=== PATIENT | female | born 1950 | race American Indian/Alaskan Native ===

== ENCOUNTER 2018-06-06 16:58 | Inpatient (IN) | payer MEDICARE ==
[2018-06-06] MEDS ORDERED: NACL 0.9% 1000 ML 1,000 ML IV ONE ×2 (17:12→19:31)
--- NOTE | 2018-06-06 17:23 | Emergency Department Report ---
HPI - General Chief Complaint: Vaginal Bleeding Time Seen by Provider: 06/06/18 17:07 - HPI HPI: Room 22 The patient is a 67-year-old female presenting with a chief complaint of vaginal bleeding. The patient was sent from [facility] for increased vaginal bleeding. Staff states the patient had light vaginal bleeding a day today she soaked through an entire brief. Patient is nonverbal at baseline and does not provide a history. Location: Genitourinary Duration: 2 days Quality: [See above] Severity: [See above] Modifying factors: [see above] Context: [see above] Mode of transportation: [not driving] ED Past Medical Hx - Past Medical History Hx Hypertension: Yes Hx CVA: Yes Hx Diabetes: Yes Hx GERD: Yes Hx Seizures: Yes Additional medical history: Resp failure, Trach - Surgical History Additional Surgical History: TRach, PEG tube - Family History Family history: no significant - Social History Smoking Status: Unknown if ever smoked Substance Use Type: None - Medications Home Medications: Home Medications Medication Instructions Recorded Confirmed Last Taken Type Detemir (Nf) [Levemir (Nf)] 100 units SQ DAILY 01/11/18 06/06/18 Unknown History Famotidine [Pepcid] 20 mg NGTUBE BID 01/11/18 06/06/18 Unknown History amLODIPine [Norvasc] 10 mg NGTUBE DAILY 01/11/18 06/06/18 Unknown History levETIRAcetam [Levetiracetam] 100 mg NGTUBE Q12HR 01/11/18 06/06/18 Unknown History Metoprolol 25 mg NGTUBE BID 06/06/18 06/06/18 Unknown History ED Review of Systems ROS: Stated complaint: VAGINAL BLEEDING Other details as noted in HPI Comment: Unobtainable due to pts medical conditions Physical Exam - Physical Exam Vital Signs: Vital Signs 06/06/18 17:09 Temperature 99.7 F H Pulse Rate 157 H Respiratory 26 H Rate Blood Pressure 174/99 O2 Sat by Pulse 100 Oximetry Physical Exam: GENERAL: The patient is well-developed well-nourished female lying on stretcher with trach in place nonverbal. [] HEENT: Normocephalic. Atraumatic. Patient has moist mucous membranes. NECK: Supple. Trachea midline CHEST/LUNGS: Clear to auscultation. There is no respiratory distress noted. HEART/CARDIOVASCULAR: Regular. There is tachycardia. There is no gallop rub or murmur. ABDOMEN: Abdomen is soft, nontender. Patient has normal bowel sounds. There is no abdominal distention. SKIN: There is no rash. There is no edema. There is no diaphoresis. NEURO: The patient is nonverbal and unresponsive at baseline MUSCULOSKELETAL: There is no evidence of acute injury. ED Course Vital Signs 06/06/18 17:09 Temperature 99.7 F H Pulse Rate 157 H Respiratory 26 H Rate Blood Pressure 174/99 O2 Sat by Pulse 100 Oximetry - Consultations Consultation #1: 06/06/18 17:17 Information obtained from the patient's nurse at [facility] ED Medical Decision Making - Lab Data Result diagrams: 06/06/18 17:10 06/06/18 17:45 - EKG Data -: EKG Interpreted by Me - EKG Data When compared to previous EKG there are: previous EKG unavailable Interpretation: other (EKG reveals SVT at 161 bpm) - Radiology Data Radiology results: pending (pelvic ultrasound) Critical care attestation.: If time is entered above; I have spent that time in minutes in the direct care of this critically ill patient, excluding procedure time. ED Disposition Clinical Impression: SVT (supraventricular tachycardia), Lactic acidosis Disposition: -09 OP ADMIT IP TO THIS HOSP Is pt being admited?: Yes Does the pt Need Aspirin: No Condition: Fair Time of Disposition: 20:04 (hospitalist paged (Dr Bowden))
[2018-06-06 17:26] LABS: Hematocrit 37.2 % (30.3-42.9); Hemoglobin 11.8 gm/dl (10.1-14.3); Mean Corpuscular HGB Conc 32 % (30-34); Mean Corpuscular Volume 71 fl (79-97); Platelet Count 470 K/mm3 (140-440); Red Blood Count 5.22 M/mm3 (3.65-5.03)
[2018-06-06 18:05] LABS: Red Cell Distribution Width 20.6 % (13.2-15.2)
[2018-06-06 18:16] LABS: Anisocytosis 1+; Eosinophils % (Manual) 0 % (0.0-4.3); Ovalocytes 1+; Poikilocytosis 1+; Total Cells Counted 100
[2018-06-06 18:17] LABS: Hypochromasia 1+; Platelet Estimate Consistent w Auto; Target Cells Few
[2018-06-06 18:26] LABS: Alanine Aminotransferase 16 units/L (7-56); Albumin 3.3 g/dL (3.9-5); BUN/Creatinine Ratio 27; Blood Urea Nitrogen 8 mg/dL (7-17); Calcium 9.3 mg/dL (8.4-10.2); Hemolysis Index 0
--- NOTE | 2018-06-06 18:26 | XRay Report ---
PROCEDURE: XR CHEST 1V AP TECHNIQUE: Chest radiograph , single frontal view. HISTORY: tachycardia COMPARISONS: CXR 01/11/2018 . FINDINGS: Heart: Normal. Mediastinum/Vessels: Normal. Lungs/Pleural space: Consolidation in the left base medially with air bronchograms. Findings suggest infiltrate, again noted. Bony thorax: No acute osseous abnormality. Life support devices: Tracheostomy tube is noted.. IMPRESSION: Infiltrate with air bronchograms in the medial left lung base suspicious for pneumonia. This document is electronically signed by Verna Kenney MD., June 06 2018 06:24:10 PM ET
[2018-06-06 18:32] LABS: Free T4 (Free Thyroxine) 1.34 ng/dL (0.76-1.46)
[2018-06-06 19:14] LABS: Bilirubin,Urine NEG (Negative); Blood,Urine NEG (Negative); Color,Urine Yellow (Yellow); Protein,Urine <15 mg/dL mg/dL (Negative); Urobilinogen,Urine < 2.0 mg/dL (<2.0)
[2018-06-06] MEDS ORDERED: LOPRESSOR IV ONE (19:31)
--- NOTE | 2018-06-06 20:31 | Ultrasound Report ---
US PELVIC COMPLETE CLINICAL INDICATION: Female, 67 years of age. vaginal bleeding COMPARISON: None. TECHNIQUE: Several real-time grayscale and color Doppler images were obtained. Permanent images were secured for documentation. Transabdominal exam. Patient declined transvaginal exam. FINDINGS: Uterus and ovaries are not visualized and may be surgically absent. Visualized urinary blad dharmesh is unremarkable. No abnormal soft tissue mass or fluid collection demonstrated within the pelvic cavity. IMPRESSION: 1. Uterus and ovaries are not visualized and may be surgically absent. 2. No abnormal soft tissue mass or fluid collection demonstrated within the pelvic cavity. This document is electronically signed by Devan Hurley DO., June 06 2018 08:29:42 PM ET
--- NOTE | 2018-06-06 23:00 | History and Physical Report ---
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 In the emergency room the blood was noted to be in her stool. Review of systems unobtainable PAST MEDICAL HISTORY: Chronic respiratory failure, CVA with a face care, hypertension, diabetes, GERD, seizure PAST SURGICAL HISTORY: Unknown SOCIAL HISTORY: Unknown FAMILY HISTORY: Unknown Medications and Allergies Allergies Allergy/AdvReac Type Severity Reaction Status Date / Time hydrocodone AdvReac Unknown Verified 01/11/18 10:15 Home Medications Medication Instructions Recorded Confirmed Last Taken Type Detemir (Nf) [Levemir (Nf)] 100 units SQ DAILY 01/11/18 06/06/18 Unknown History Famotidine [Pepcid] 20 mg NGTUBE BID 01/11/18 06/06/18 Unknown History amLODIPine [Norvasc] 10 mg NGTUBE DAILY 01/11/18 06/06/18 Unknown History levETIRAcetam [Levetiracetam] 100 mg NGTUBE Q12HR 01/11/18 06/06/18 Unknown History Metoprolol 25 mg NGTUBE BID 06/06/18 06/06/18 Unknown History Exam - Physical Exam Narrative exam: Gen. appearance: Patient lying in bed, no apparent distress, trach HEENT: Normocephalic, atraumatic, pupils equally round and reactive to light, extraocular movement intact, and no sclericterus,. No JVD or thyromegaly or nodule,neck supple, no carotid bruit ,mucous membranes moist, no exudate or erythema Heart: S1, S2, regular rate and rhythm Lungs: Clear bilaterally, breathing comfortable Abdomen: Positive bowel sounds, non-tender, nondistended, no organomegaly Extremity:no edema cyanosis, clubbing Skin: sacral decb no rash, dry, warm Neuro: non verbal, difficult to assess - Constitutional Vitals: Temp Pulse Resp BP Pulse Ox 98.9 F 107 H 21 157/64 99 06/06/18 19:50 06/06/18 21:15 06/06/18 21:15 06/06/18 21:15 06/06/18 21:15 Results - Labs CBC & Chem 7: 06/07/18 00:07 06/06/18 17:45 Labs: Abnormal lab results 06/06/18 06/06/18 06/06/18 Range/Units 17:10 17:10 17:45 WBC 13.4 H (4.5-11.0) K/mm3 RBC 5.22 H (3.65-5.03) M/mm3 MCV 71 L (79-97) fl MCH 23 L (28-32) pg RDW 20.6 H (13.2-15.2) % Plt Count 470 H (140-440) K/mm3 Seg Neuts % (Manual) 78.0 H (40.0-70.0) % Seg Neutrophils # Man 10.5 H (1.8-7.7) K/mm3 Chloride 96.7 L (98-107) mmol/L Creatinine 0.3 L (0.7-1.2) mg/dL Glucose 147 H (65-100) mg/dL POC Glucose (70-105) Lactic Acid 3.70 H* (0.7-2.0) mmol/L Albumin 3.3 L (3.9-5) g/dL 06/06/18 06/06/18 06/06/18 Range/Units 17:57 18:16 19:00 WBC (4.5-11.0) K/mm3 RBC (3.65-5.03) M/mm3 MCV (79-97) fl MCH (28-32) pg RDW (13.2-15.2) % Plt Count (140-440) K/mm3 Seg Neuts % (Manual) (40.0-70.0) % Seg Neutrophils # Man (1.8-7.7) K/mm3 Chloride (98-107) mmol/L Creatinine (0.7-1.2) mg/dL Glucose (65-100) mg/dL POC Glucose 132 H (70-105) Lactic Acid 3.60 H* 4.20 H* (0.7-2.0) mmol/L Albumin (3.9-5) g/dL 06/06/18 06/06/18 06/06/18 Range/Units 19:27 19:51 20:50 WBC (4.5-11.0) K/mm3 RBC (3.65-5.03) M/mm3 MCV (79-97) fl MCH (28-32) pg RDW (13.2-15.2) % Plt Count (140-440) K/mm3 Seg Neuts % (Manual) (40.0-70.0) % Seg Neutrophils # Man (1.8-7.7) K/mm3 Chloride (98-107) mmol/L Creatinine (0.7-1.2) mg/dL Glucose (65-100) mg/dL POC Glucose (70-105) Lactic Acid 3.50 H* 3.90 H* 3.30 H* (0.7-2.0) mmol/L Albumin (3.9-5) g/dL 06/06/18 Range/Units 21:30 WBC (4.5-11.0) K/mm3 RBC (3.65-5.03) M/mm3 MCV (79-97) fl MCH (28-32) pg RDW (13.2-15.2) % Plt Count (140-440) K/mm3 Seg Neuts % (Manual) (40.0-70.0) % Seg Neutrophils # Man (1.8-7.7) K/mm3 Chloride (98-107) mmol/L Creatinine (0.7-1.2) mg/dL Glucose (65-100) mg/dL POC Glucose (70-105) Lactic Acid 3.10 H* (0.7-2.0) mmol/L Albumin (3.9-5) g/dL - Imaging and Cardiology Abdominal x-ray: report reviewed Assessment and Plan Assessment lower GI bleed Pneumonia Chronic respiratory failure Hypertension Diabetes GERD History of CVA/aphasia Sacral decubitus Plan Admit C and I started IV Levaquin, start IV fluid check serial hemoglobin, consult GI Check fingersticks, DVT prophylaxis
[2018-06-06] MEDS ORDERED: D50W (25GM) Syringe IV PRN (23:43)
[2018-06-06] MEDS ORDERED: ZOFRAN IV PRN (23:43)
[2018-06-06] MEDS ORDERED: SODIUM CHLORIDE FLUSH SYRINGE 10 ML IV PRN (23:43)
[2018-06-07 00:45] LABS: Hematocrit 35.9 % (30.3-42.9); Hemoglobin 11.2 gm/dl (10.1-14.3)
[2018-06-07] MEDS ORDERED: LEVAQUIN 750MG/150ML 750 MG/150 ML BAG IV SCH (02:36)
[2018-06-07] MEDS ORDERED: SODIUM CHLORIDE FLUSH SYRINGE 10 ML IV PRN (02:37)
[2018-06-07] MEDS ORDERED: ZOFRAN IV PRN (02:37)
[2018-06-07] MEDS ORDERED: TYLENOL PO PRN (02:37)
[2018-06-07] MEDS: NACL 0.9% 1000 ML 1,000 ML IV SCH ×2 (03:46→14:48)
[2018-06-07 08:27] LABS: Basophils % (Auto) 0.4 % (0.0-1.8); Eosinophils % (Auto) 0.4 % (0.0-4.3); Hematocrit 33.9 % (30.3-42.9); Hemoglobin 10.5 gm/dl (10.1-14.3); Hemoglobin 10.6 gm/dl (10.1-14.3); Lymphocytes # (Auto) 1.9 K/mm3 (1.2-5.4); Lymphocytes % (Auto) 16.7 % (13.4-35.0); Mean Corpuscular HGB Conc 31 % (30-34); Mean Corpuscular Volume 71 fl (79-97); Monocytes # (Auto) 0.7 K/mm3 (0.0-0.8); Monocytes % (Auto) 6.3 % (0.0-7.3); Platelet Count 404 K/mm3 (140-440); Red Blood Count 4.77 M/mm3 (3.65-5.03); Red Cell Distribution Width 19.6 % (13.2-15.2)
[2018-06-07 09:09] LABS: BUN/Creatinine Ratio 35; Blood Urea Nitrogen 7 mg/dL (7-17); Calcium 8.9 mg/dL (8.4-10.2); Hemolysis Index 6
[2018-06-07] MEDS ORDERED: SODIUM CHLORIDE FLUSH SYRINGE 10 ML IV SCH (10:00)
--- NOTE | 2018-06-07 11:01 | Gastroenterology Consultation ---
History of Present Illness - Reason for Consult Consult date: 06/07/18 Rectal Hemorrhage Requesting physician: JEFF MOON - History of Present Illness The patient is nonverbal, and the history is per the chart and nursing staff. She was sent from [facility] for possible vaginal bleeding, but in the ER was noted to have possible blood her rectum (but also has a sacral decubitus). She is nonverbal and unable to communicate. There are no records to indicate a prior endoscopy, and calls to son (Mr Zuniga) and sister (Ms Sheikh) were not successful. She has a chronic PEG/Trach, presumably from her hx of a CVA. She has no blood in the PEG, and there was no reported emesis or hematemesis. She has no visible abdominal pain/discomfort, and there has been no stool since being of the hansen. Past History Past Medical History: diabetes, hypertension, seizures, stroke Past Surgical History: Other (Trach/PEG) Social history: other (Lives in [facility] denies: alcohol abuse Family history: other (Unable to obtain) Medications and Allergies Allergies Allergy/AdvReac Type Severity Reaction Status Date / Time hydrocodone AdvReac Unknown Verified 01/11/18 10:15 Home Medications Medication Instructions Recorded Confirmed Last Taken Type Detemir (Nf) [Levemir (Nf)] 100 units SQ DAILY 01/11/18 06/06/18 Unknown History Famotidine [Pepcid] 20 mg NGTUBE BID 01/11/18 06/06/18 Unknown History amLODIPine [Norvasc] 10 mg NGTUBE DAILY 01/11/18 06/06/18 Unknown History levETIRAcetam [Levetiracetam] 100 mg NGTUBE Q12HR 01/11/18 06/06/18 Unknown History Metoprolol 25 mg NGTUBE BID 06/06/18 06/06/18 Unknown History Active Meds: Active Medications Acetaminophen (Tylenol) 650 mg PO Q4H PRN PRN Reason: Pain MILD(1-3)/Fever >100.5/JACKSON Dextrose (D50w (25gm) Syringe) 50 ml IV PRN PRN PRN Reason: Hypoglycemia Levofloxacin/Dextrose (Levaquin 750mg/150ml) 750 mg in 150 mls @ 100 mls/hr IV Q24HR@0600 BEBE; Protocol Last Admin: 06/07/18 03:46 Dose: 100 mls/hr Documented by: Sodium Chloride (Nacl 0.9% 1000 Ml) 1,000 mls @ 100 mls/hr IV DIRECT BEBE Last Admin: 06/07/18 03:46 Dose: 100 mls/hr Documented by: Ondansetron HCl (Zofran) 4 mg IV Q4H PRN PRN Reason: Nausea And Vomiting Sodium Chloride (Sodium Chloride Flush Syringe 10 Ml) 10 ml IV BID BEBE Sodium Chloride (Sodium Chloride Flush Syringe 10 Ml) 10 ml IV PRN PRN PRN Reason: LINE FLUSH I HAVE REVIEWED AND RECONCILED MEDICATIONS Review of Systems - Review of Systems ROS unobtainable: due to mental status Exam - Constitutional Vital Signs: Temp Pulse Resp BP Pulse Ox 99.1 F 115 H 18 133/67 95 06/07/18 07:54 06/07/18 07:54 06/07/18 07:54 06/07/18 07:54 06/07/18 07:54 General appearance: no acute distress, other (No verbal; will open eyes with tactile stimulation; no response to voice) - EENT Eyes: PERRL, EOM intact ENT: clear oral mucosa, other (Trach present without bleeding) - Neck Neck: supple, normal ROM - Respiratory Respiratory effort: normal Respiratory: bilateral: CTA - Cardiovascular Rhythm: regular Heart Sounds: Present: S1 & S2 Extremities: no ischemia, No edema - Gastrointestinal General gastrointestinal: Present: soft, non-tender, non-distended, other (PEG in LUQ with bumper at 5cm on the skin; no blood in tube and no erythema on skin) - Integumentary Integumentary: Present: erythema (Sacral decubitus present) - Neurologic Neurological: other (Nonverbal; some contractures (mild); no volumtary response to verbal stimuli) - Labs CBC & Chem 7: 06/07/18 07:58 06/07/18 07:58 Lab Results: Laboratory Results - last 24 hr 06/06/18 06/06/18 06/06/18 17:10 17:10 17:45 WBC 13.4 H RBC 5.22 H Hgb 11.8 Hct 37.2 MCV 71 L MCH 23 L MCHC 32 RDW 20.6 H Plt Count 470 H Lymph % (Auto) [place] % (Auto) Eos % (Auto) Baso % (Auto) Lymph # [place] # Eos # Baso # Add Manual Diff Complete Total Counted 100 Seg Neutrophils % Seg Neuts % (Manual) 78.0 H Band Neutrophils % 0 Lymphocytes % (Manual) 17.0 Reactive Lymphs % (Man) 0 Monocytes % (Manual) 3.0 Eosinophils % (Manual) 0 Basophils % (Manual) 1.0 Metamyelocytes % 1.0 Myelocytes % 0 Promyelocytes % 0 Blast Cells % 0 Nucleated RBC % Not Reportable Seg Neutrophils # Seg Neutrophils # Man 10.5 H Band Neutrophils # 0.0 Lymphocytes # (Manual) 2.3 Abs React Lymphs (Man) 0.0 Monocytes # (Manual) 0.4 Eosinophils # (Manual) 0.0 Basophils # (Manual) 0.1 Metamyelocytes # 0.1 Myelocytes # 0.0 Promyelocytes # 0.0 Blast Cells # 0.0 WBC Morphology Not Reportable Hypersegmented Neuts Not Reportable Hyposegmented Neuts Not Reportable Hypogranular Neuts Not Reportable Smudge Cells Not Reportable Toxic Granulation Not Reportable Toxic Vacuolation Not Reportable Dohle Bodies Not Reportable Pelger-Huet Anomaly Not Reportable Jewel Rods Not Reportable Platelet Estimate Consistent w auto Clumped Platelets Not Reportable Plt Clumps, EDTA Not Reportable Large Platelets Not Reportable Giant Platelets Not Reportable Platelet Satelliting Not Reportable Plt Morphology Comment Not Reportable RBC Morphology Not Reportable Dimorphic RBCs Not Reportable Polychromasia Not Reportable Hypochromasia 1+ Poikilocytosis 1+ Anisocytosis 1+ Microcytosis Not Reportable Macrocytosis Not Reportable Spherocytes Not Reportable Pappenheimer Bodies Not Reportable Sickle Cells Not Reportable Target Cells Few Tear Drop Cells Not Reportable Ovalocytes 1+ Helmet Cells Not Reportable [place] Bodies Not Reportable Alpine Rings Not Reportable Krunal Cells Not Reportable Bite Cells Not Reportable Crenated Cell Not Reportable Elliptocytes Not Reportable Acanthocytes (Spur) Not Reportable Rouleaux Not Reportable Hemoglobin C Crystals Not Reportable Schistocytes Not Reportable Malaria parasites Not Reportable Anthony Bodies Not Reportable Hem Pathologist Commnt No Sodium Potassium Chloride Carbon Dioxide Anion Gap BUN Creatinine Estimated GFR BUN/Creatinine Ratio Glucose POC Glucose Lactic Acid 3.70 H* Calcium Total Bilirubin AST ALT Alkaline Phosphatase Troponin T 0.014 Total Protein Albumin Albumin/Globulin Ratio TSH Free T4 Urine Color Urine Turbidity Urine pH Ur Specific [place] Urine Protein Urine Glucose (UA) Urine Ketones Urine Blood Urine Nitrite Urine Bilirubin Urine Urobilinogen Ur Leukocyte Esterase Urine WBC (Auto) Urine RBC (Auto) U Epithel Cells (Auto) Blood Type Antibody Screen 06/06/18 06/06/18 06/06/18 17:45 17:45 17:45 WBC RBC Hgb Hct MCV MCH MCHC RDW Plt Count Lymph % (Auto) [place] % (Auto) Eos % (Auto) Baso % (Auto) Lymph # [place] # Eos # Baso # Add Manual Diff Total Counted Seg Neutrophils % Seg Neuts % (Manual) Band Neutrophils % Lymphocytes % (Manual) Reactive Lymphs % (Man) Monocytes % (Manual) Eosinophils % (Manual) Basophils % (Manual) Metamyelocytes % Myelocytes % Promyelocytes % Blast Cells % Nucleated RBC % Seg Neutrophils # Seg Neutrophils # Man Band Neutrophils # Lymphocytes # (Manual) Abs React Lymphs (Man) Monocytes # (Manual) Eosinophils # (Manual) Basophils # (Manual) Metamyelocytes # Myelocytes # Promyelocytes # Blast Cells # WBC Morphology Hypersegmented Neuts Hyposegmented Neuts Hypogranular Neuts Smudge Cells Toxic Granulation Toxic Vacuolation Dohle Bodies Pelger-Huet Anomaly Jewel Rods Platelet Estimate Clumped Platelets Plt Clumps, EDTA Large Platelets Giant Platelets Platelet Satelliting Plt Morphology Comment RBC Morphology Dimorphic RBCs Polychromasia Hypochromasia Poikilocytosis Anisocytosis Microcytosis Macrocytosis Spherocytes Pappenheimer Bodies Sickle Cells Target Cells Tear Drop Cells Ovalocytes Helmet Cells [place] Bodies Alpine Rings Emigrant Cells Bite Cells Crenated Cell Elliptocytes Acanthocytes (Spur) Rouleaux Hemoglobin C Crystals Schistocytes Malaria parasites Anthony Bodies Hem Pathologist Commnt Sodium 138 Potassium 3.9 Chloride 96.7 L Carbon Dioxide 27 Anion Gap 18 BUN 8 Creatinine 0.3 L Estimated GFR > 60 BUN/Creatinine Ratio 27 Glucose 147 H POC Glucose Lactic Acid Calcium 9.3 Total Bilirubin 0.20 AST 19 ALT 16 Alkaline Phosphatase 80 Troponin T Total Protein 7.7 Albumin 3.3 L Albumin/Globulin Ratio 0.8 TSH 2.400 Free T4 1.34 Urine Color Urine Turbidity Urine pH Ur Specific [place] Urine Protein Urine Glucose (UA) Urine Ketones Urine Blood Urine Nitrite Urine Bilirubin Urine Urobilinogen Ur Leukocyte Esterase Urine WBC (Auto) Urine RBC (Auto) U Epithel Cells (Auto) Blood Type A POSITIVE Antibody Screen Negative 06/06/18 06/06/18 06/06/18 17:57 18:16 18:46 WBC RBC Hgb Hct MCV MCH MCHC RDW Plt Count Lymph % (Auto) [place] % (Auto) Eos % (Auto) Baso % (Auto) Lymph # [place] # Eos # Baso # Add Manual Diff Total Counted Seg Neutrophils % Seg Neuts % (Manual) Band Neutrophils % Lymphocytes % (Manual) Reactive Lymphs % (Man) Monocytes % (Manual) Eosinophils % (Manual) Basophils % (Manual) Metamyelocytes % Myelocytes % Promyelocytes % Blast Cells % Nucleated RBC % Seg Neutrophils # Seg Neutrophils # Man Band Neutrophils # Lymphocytes # (Manual) Abs React Lymphs (Man) Monocytes # (Manual) Eosinophils # (Manual) Basophils # (Manual) Metamyelocytes # Myelocytes # Promyelocytes # Blast Cells # WBC Morphology Hypersegmented Neuts Hyposegmented Neuts Hypogranular Neuts Smudge Cells Toxic Granulation Toxic Vacuolation Dohle Bodies Pelger-Huet Anomaly Jewel Rods Platelet Estimate Clumped Platelets Plt Clumps, EDTA Large Platelets Giant Platelets Platelet Satelliting Plt Morphology Comment RBC Morphology Dimorphic RBCs Polychromasia Hypochromasia Poikilocytosis Anisocytosis Microcytosis Macrocytosis Spherocytes Pappenheimer Bodies Sickle Cells Target Cells Tear Drop Cells Ovalocytes Helmet Cells [place] Bodies Alpine Rings Krunal Cells Bite Cells Crenated Cell Elliptocytes Acanthocytes (Spur) Rouleaux Hemoglobin C Crystals Schistocytes Malaria parasites Anthony Bodies Hem Pathologist Commnt Sodium Potassium Chloride Carbon Dioxide Anion Gap BUN Creatinine Estimated GFR BUN/Creatinine Ratio Glucose POC Glucose 132 H Lactic Acid 3.60 H* Calcium Total Bilirubin AST ALT Alkaline Phosphatase Troponin T Total Protein Albumin Albumin/Globulin Ratio TSH Free T4 Urine Color Yellow Urine Turbidity Clear Urine pH 7.0 Ur Specific [place] 1.006 Urine Protein <15 mg/dl Urine Glucose (UA) Neg Urine Ketones Neg Urine Blood Neg Urine Nitrite Neg Urine Bilirubin Neg Urine Urobilinogen < 2.0 Ur Leukocyte Esterase Neg Urine WBC (Auto) 1.0 Urine RBC (Auto) 2.0 U Epithel Cells (Auto) 1.0 Blood Type Antibody Screen 06/06/18 06/06/18 06/06/18 19:00 19:27 19:51 WBC RBC Hgb Hct MCV MCH MCHC RDW Plt Count Lymph % (Auto) [place] % (Auto) Eos % (Auto) Baso % (Auto) Lymph # [place] # Eos # Baso # Add Manual Diff Total Counted Seg Neutrophils % Seg Neuts % (Manual) Band Neutrophils % Lymphocytes % (Manual) Reactive Lymphs % (Man) Monocytes % (Manual) Eosinophils % (Manual) Basophils % (Manual) Metamyelocytes % Myelocytes % Promyelocytes % Blast Cells % Nucleated RBC % Seg Neutrophils # Seg Neutrophils # Man Band Neutrophils # Lymphocytes # (Manual) Abs React Lymphs (Man) Monocytes # (Manual) Eosinophils # (Manual) Basophils # (Manual) Metamyelocytes # Myelocytes # Promyelocytes # Blast Cells # WBC Morphology Hypersegmented Neuts Hyposegmented Neuts Hypogranular Neuts Smudge Cells Toxic Granulation Toxic Vacuolation Dohle Bodies Pelger-Huet Anomaly Jewel Rods Platelet Estimate Clumped Platelets Plt Clumps, EDTA Large Platelets Giant Platelets Platelet Satelliting Plt Morphology Comment RBC Morphology Dimorphic RBCs Polychromasia Hypochromasia Poikilocytosis Anisocytosis Microcytosis Macrocytosis Spherocytes Pappenheimer Bodies Sickle Cells Target Cells Tear Drop Cells Ovalocytes Helmet Cells [place] Bodies Alpine Rings Emigrant Cells Bite Cells Crenated Cell Elliptocytes Acanthocytes (Spur) Rouleaux Hemoglobin C Crystals Schistocytes Malaria parasites Anthony Bodies Hem Pathologist Commnt Sodium Potassium Chloride Carbon Dioxide Anion Gap BUN Creatinine Estimated GFR BUN/Creatinine Ratio Glucose POC Glucose Lactic Acid 4.20 H* 3.50 H* 3.90 H* Calcium Total Bilirubin AST ALT Alkaline Phosphatase Troponin T Total Protein Albumin Albumin/Globulin Ratio TSH Free T4 Urine Color Urine Turbidity Urine pH Ur Specific [place] Urine Protein Urine Glucose (UA) Urine Ketones Urine Blood Urine Nitrite Urine Bilirubin Urine Urobilinogen Ur Leukocyte Esterase Urine WBC (Auto) Urine RBC (Auto) U Epithel Cells (Auto) Blood Type Antibody Screen 06/06/18 06/06/18 06/06/18 20:50 21:30 23:49 WBC RBC Hgb Hct MCV MCH MCHC RDW Plt Count Lymph % (Auto) [place] % (Auto) Eos % (Auto) Baso % (Auto) Lymph # [place] # Eos # Baso # Add Manual Diff Total Counted Seg Neutrophils % Seg Neuts % (Manual) Band Neutrophils % Lymphocytes % (Manual) Reactive Lymphs % (Man) Monocytes % (Manual) Eosinophils % (Manual) Basophils % (Manual) Metamyelocytes % Myelocytes % Promyelocytes % Blast Cells % Nucleated RBC % Seg Neutrophils # Seg Neutrophils # Man Band Neutrophils # Lymphocytes # (Manual) Abs React Lymphs (Man) Monocytes # (Manual) Eosinophils # (Manual) Basophils # (Manual) Metamyelocytes # Myelocytes # Promyelocytes # Blast Cells # WBC Morphology Hypersegmented Neuts Hyposegmented Neuts Hypogranular Neuts Smudge Cells Toxic Granulation Toxic Vacuolation Dohle Bodies Pelger-Huet Anomaly Jewel Rods Platelet Estimate Clumped Platelets Plt Clumps, EDTA Large Platelets Giant Platelets Platelet Satelliting Plt Morphology Comment RBC Morphology Dimorphic RBCs Polychromasia Hypochromasia Poikilocytosis Anisocytosis Microcytosis Macrocytosis Spherocytes Pappenheimer Bodies Sickle Cells Target Cells Tear Drop Cells Ovalocytes Helmet Cells [place] Bodies Alpine Rings Krunal Cells Bite Cells Crenated Cell Elliptocytes Acanthocytes (Spur) Rouleaux Hemoglobin C Crystals Schistocytes Malaria parasites Anthony Bodies Hem Pathologist Commnt Sodium Potassium Chloride Carbon Dioxide Anion Gap BUN Creatinine Estimated GFR BUN/Creatinine Ratio Glucose POC Glucose Lactic Acid 3.30 H* 3.10 H* 3.60 H* Calcium Total Bilirubin AST ALT Alkaline Phosphatase Troponin T Total Protein Albumin Albumin/Globulin Ratio TSH Free T4 Urine Color Urine Turbidity Urine pH Ur Specific [place] Urine Protein Urine Glucose (UA) Urine Ketones Urine Blood Urine Nitrite Urine Bilirubin Urine Urobilinogen Ur Leukocyte Esterase Urine WBC (Auto) Urine RBC (Auto) U Epithel Cells (Auto) Blood Type Antibody Screen 06/07/18 06/07/18 06/07/18 00:07 01:57 06:19 WBC RBC Hgb 11.2 Hct 35.9 MCV MCH MCHC RDW Plt Count Lymph % (Auto) [place] % (Auto) Eos % (Auto) Baso % (Auto) Lymph # [place] # Eos # Baso # Add Manual Diff Total Counted Seg Neutrophils % Seg Neuts % (Manual) Band Neutrophils % Lymphocytes % (Manual) Reactive Lymphs % (Man) Monocytes % (Manual) Eosinophils % (Manual) Basophils % (Manual) Metamyelocytes % Myelocytes % Promyelocytes % Blast Cells % Nucleated RBC % Seg Neutrophils # Seg Neutrophils # Man Band Neutrophils # Lymphocytes # (Manual) Abs React Lymphs (Man) Monocytes # (Manual) Eosinophils # (Manual) Basophils # (Manual) Metamyelocytes # Myelocytes # Promyelocytes # Blast Cells # WBC Morphology Hypersegmented Neuts Hyposegmented Neuts Hypogranular Neuts Smudge Cells Toxic Granulation Toxic Vacuolation Dohle Bodies Pelger-Huet Anomaly Jewel Rods Platelet Estimate Clumped Platelets Plt Clumps, EDTA Large Platelets Giant Platelets Platelet Satelliting Plt Morphology Comment RBC Morphology Dimorphic RBCs Polychromasia Hypochromasia Poikilocytosis Anisocytosis Microcytosis Macrocytosis Spherocytes Pappenheimer Bodies Sickle Cells Target Cells Tear Drop Cells Ovalocytes Helmet Cells [place] Bodies Alpine Rings Krunal Cells Bite Cells Crenated Cell Elliptocytes Acanthocytes (Spur) Rouleaux Hemoglobin C Crystals Schistocytes Malaria parasites Anthony Bodies Hem Pathologist Commnt Sodium Potassium Chloride Carbon Dioxide Anion Gap BUN Creatinine Estimated GFR BUN/Creatinine Ratio Glucose POC Glucose 142 H 117 H Lactic Acid Calcium Total Bilirubin AST ALT Alkaline Phosphatase Troponin T Total Protein Albumin Albumin/Globulin Ratio TSH Free T4 Urine Color Urine Turbidity Urine pH Ur Specific [place] Urine Protein Urine Glucose (UA) Urine Ketones Urine Blood Urine Nitrite Urine Bilirubin Urine Urobilinogen Ur Leukocyte Esterase Urine WBC (Auto) Urine RBC (Auto) U Epithel Cells (Auto) Blood Type Antibody Screen 06/07/18 06/07/18 06/07/18 07:58 07:58 07:58 WBC 11.1 H RBC 4.77 Hgb 10.6 10.5 Hct 33.9 34.0 MCV 71 L MCH 22 L MCHC 31 RDW 19.6 H Plt Count 404 Lymph % (Auto) 16.7 [place] % (Auto) 6.3 Eos % (Auto) 0.4 Baso % (Auto) 0.4 Lymph # 1.9 [place] # 0.7 Eos # 0.0 Baso # 0.0 Add Manual Diff Total Counted Seg Neutrophils % 76.2 H Seg Neuts % (Manual) Band Neutrophils % Lymphocytes % (Manual) Reactive Lymphs % (Man) Monocytes % (Manual) Eosinophils % (Manual) Basophils % (Manual) Metamyelocytes % Myelocytes % Promyelocytes % Blast Cells % Nucleated RBC % Seg Neutrophils # 8.5 H Seg Neutrophils # Man Band Neutrophils # Lymphocytes # (Manual) Abs React Lymphs (Man) Monocytes # (Manual) Eosinophils # (Manual) Basophils # (Manual) Metamyelocytes # Myelocytes # Promyelocytes # Blast Cells # WBC Morphology Hypersegmented Neuts Hyposegmented Neuts Hypogranular Neuts Smudge Cells Toxic Granulation Toxic Vacuolation Dohle Bodies Pelger-Huet Anomaly Jewel Rods Platelet Estimate Clumped Platelets Plt Clumps, EDTA Large Platelets Giant Platelets Platelet Satelliting Plt Morphology Comment RBC Morphology Dimorphic RBCs Polychromasia Hypochromasia Poikilocytosis Anisocytosis Microcytosis Macrocytosis Spherocytes Pappenheimer Bodies Sickle Cells Target Cells Tear Drop Cells Ovalocytes Helmet Cells [place] Bodies Alpine Rings Krunal Cells Bite Cells Crenated Cell Elliptocytes Acanthocytes (Spur) Rouleaux Hemoglobin C Crystals Schistocytes Malaria parasites Anthony Bodies Hem Pathologist Commnt Sodium 139 Potassium 4.2 Chloride 100.9 Carbon Dioxide 25 Anion Gap 17 BUN 7 Creatinine 0.2 L Estimated GFR > 60 BUN/Creatinine Ratio 35 Glucose 108 H POC Glucose Lactic Acid Calcium 8.9 Total Bilirubin AST ALT Alkaline Phosphatase Troponin T Total Protein Albumin Albumin/Globulin Ratio TSH Free T4 Urine Color Urine Turbidity Urine pH Ur Specific [place] Urine Protein Urine Glucose (UA) Urine Ketones Urine Blood Urine Nitrite Urine Bilirubin Urine Urobilinogen Ur Leukocyte Esterase Urine WBC (Auto) Urine RBC (Auto) U Epithel Cells (Auto) Blood Type Antibody Screen 06/07/18 07:58 WBC RBC Hgb Hct MCV MCH MCHC RDW Plt Count Lymph % (Auto) [place] % (Auto) Eos % (Auto) Baso % (Auto) Lymph # [place] # Eos # Baso # Add Manual Diff Total Counted Seg Neutrophils % Seg Neuts % (Manual) Band Neutrophils % Lymphocytes % (Manual) Reactive Lymphs % (Man) Monocytes % (Manual) Eosinophils % (Manual) Basophils % (Manual) Metamyelocytes % Myelocytes % Promyelocytes % Blast Cells % Nucleated RBC % Seg Neutrophils # Seg Neutrophils # Man Band Neutrophils # Lymphocytes # (Manual) Abs React Lymphs (Man) Monocytes # (Manual) Eosinophils # (Manual) Basophils # (Manual) Metamyelocytes # Myelocytes # Promyelocytes # Blast Cells # WBC Morphology Hypersegmented Neuts Hyposegmented Neuts Hypogranular Neuts Smudge Cells Toxic Granulation Toxic Vacuolation Dohle Bodies Pelger-Huet Anomaly Jewel Rods Platelet Estimate Clumped Platelets Plt Clumps, EDTA Large Platelets Giant Platelets Platelet Satelliting Plt Morphology Comment RBC Morphology Dimorphic RBCs Polychromasia Hypochromasia Poikilocytosis Anisocytosis Microcytosis Macrocytosis Spherocytes Pappenheimer Bodies Sickle Cells Target Cells Tear Drop Cells Ovalocytes Helmet Cells [place] Bodies Alpine Rings Emigrant Cells Bite Cells Crenated Cell Elliptocytes Acanthocytes (Spur) Rouleaux Hemoglobin C Crystals Schistocytes Malaria parasites Anthony Bodies Hem Pathologist Commnt Sodium Potassium Chloride Carbon Dioxide Anion Gap BUN Creatinine Estimated GFR BUN/Creatinine Ratio Glucose POC Glucose Lactic Acid 1.80 Calcium Total Bilirubin AST ALT Alkaline Phosphatase Troponin T Total Protein Albumin Albumin/Globulin Ratio TSH Free T4 Urine Color Urine Turbidity Urine pH Ur Specific [place] Urine Protein Urine Glucose (UA) Urine Ketones Urine Blood Urine Nitrite Urine Bilirubin Urine Urobilinogen Ur Leukocyte Esterase Urine WBC (Auto) Urine RBC (Auto) U Epithel Cells (Auto) Blood Type Antibody Screen Assessment and Plan - Patient Problems (1) Rectal hemorrhage Current Visit: Yes Status: Acute Plan to address problem: - Hct stable, and no gross bleeding; unable to obtain good history given CVA/nonverbal status and unable to reach sister or son. - For now, since no gross bleeding, and serial hcts stable, OK to restart tube feeds. - Will re-attempt family contact with endoscopic w/u based on clinical course, and family wishes since persistent vegetative state (apparently). - Will place on protonix and miralax as well. (2) Sepsis Current Visit: No Status: Acute Qualifiers: Sepsis type: sepsis due to unspecified organism Qualified Code(s): A41.9 - Sepsis, unspecified organism Plan to address problem: - Workup per primary service. Note made that lactic acid resolved to normal, and WBC improved; ?related to sacral decubitus, as urine negative, and no sign of pneumonia.
--- NOTE | 2018-06-07 14:12 | Progress Note ---
Assessment and Plan Assessment and plan: Severe sepsis secondary to HCAP, present on admission -IV antibiotics changed to Vanc and Zosyn -Blood cultures pending Chronic respiratory failure with hypoxia -Status post tracheostomy -Continue trach care SVT on admission -Stable, continue telemetry monitoring Vaginal bleed -No current bleed noted per patient's nurse -H/H stable -Pelvic ultrasound negative for acute finding Oral candidiasis -On oral Diflucan Hypertension -Stable DM2 -Stable History of CVA with chronic debility and non-verbal -Continue supportive care Sacral decubitus ulcers -Continue wound care Chronic dysphagia status post PEG tube placement -Continue tube feeding Disposition: For discharge when medically stable History Interval history: Patient is nonverbal. No issues reported overnight. Hospitalist Physical - Constitutional Vitals: Temp Pulse Resp BP Pulse Ox 98.9 F 112 H 18 148/74 96 06/07/18 12:03 06/07/18 12:03 06/07/18 12:03 06/07/18 12:03 06/07/18 12:03 General appearance: Present: no acute distress - EENT Eyes: Present: PERRL, EOM intact ENT: thrush - Neck Neck: Present: supple, other (status post tracheostomy) - Respiratory Respiratory effort: normal Respiratory: bilateral: CTA - Cardiovascular Rhythm: regular (with tachycardia) Heart Sounds: Present: S1 & S2 - Abdominal General gastrointestinal: soft, non-tender, non-distended, normal bowel sounds, other (PEG tube noted) - Integumentary Integumentary: Present: erythema (decubitus ulcers) - Neurologic Neurologic: other (patient is nonverbal) Results - Labs CBC & Chem 7: 06/07/18 07:58 06/07/18 07:58 Labs: Laboratory Last Values WBC 11.1 K/mm3 (4.5-11.0) H 06/07/18 07:58 RBC 4.77 M/mm3 (3.65-5.03) 06/07/18 07:58 Hgb 10.5 gm/dl (10.1-14.3) 06/07/18 07:58 Hct 34.0 % (30.3-42.9) 06/07/18 07:58 MCV 71 fl (79-97) L 06/07/18 07:58 MCH 22 pg (28-32) L 06/07/18 07:58 MCHC 31 % (30-34) 06/07/18 07:58 RDW 19.6 % (13.2-15.2) H 06/07/18 07:58 Plt Count 404 K/mm3 (140-440) 06/07/18 07:58 Lymph % (Auto) 16.7 % (13.4-35.0) 06/07/18 07:58 [place] % (Auto) 6.3 % (0.0-7.3) 06/07/18 07:58 Eos % (Auto) 0.4 % (0.0-4.3) 06/07/18 07:58 Baso % (Auto) 0.4 % (0.0-1.8) 06/07/18 07:58 Lymph # 1.9 K/mm3 (1.2-5.4) 06/07/18 07:58 [place] # 0.7 K/mm3 (0.0-0.8) 06/07/18 07:58 Eos # 0.0 K/mm3 (0.0-0.4) 06/07/18 07:58 Baso # 0.0 K/mm3 (0.0-0.1) 06/07/18 07:58 Add Manual Diff Complete 06/06/18 17:10 Total Counted 100 06/06/18 17:10 Seg Neutrophils % 76.2 % (40.0-70.0) H 06/07/18 07:58 Seg Neuts % (Manual) 78.0 % (40.0-70.0) H 06/06/18 17:10 Band Neutrophils % 0 % 06/06/18 17:10 Lymphocytes % (Manual) 17.0 % (13.4-35.0) 06/06/18 17:10 Reactive Lymphs % (Man) 0 % 06/06/18 17:10 Monocytes % (Manual) 3.0 % (0.0-7.3) 06/06/18 17:10 Eosinophils % (Manual) 0 % (0.0-4.3) 06/06/18 17:10 Basophils % (Manual) 1.0 % (0.0-1.8) 06/06/18 17:10 Metamyelocytes % 1.0 % 06/06/18 17:10 Myelocytes % 0 % 06/06/18 17:10 Promyelocytes % 0 % 06/06/18 17:10 Blast Cells % 0 % 06/06/18 17:10 Nucleated RBC % Not Reportable 06/06/18 17:10 Seg Neutrophils # 8.5 K/mm3 (1.8-7.7) H 06/07/18 07:58 Seg Neutrophils # Man 10.5 K/mm3 (1.8-7.7) H 06/06/18 17:10 Band Neutrophils # 0.0 K/mm3 06/06/18 17:10 Lymphocytes # (Manual) 2.3 K/mm3 (1.2-5.4) 06/06/18 17:10 Abs React Lymphs (Man) 0.0 K/mm3 06/06/18 17:10 Monocytes # (Manual) 0.4 K/mm3 (0.0-0.8) 06/06/18 17:10 Eosinophils # (Manual) 0.0 K/mm3 (0.0-0.4) 06/06/18 17:10 Basophils # (Manual) 0.1 K/mm3 (0.0-0.1) 06/06/18 17:10 Metamyelocytes # 0.1 K/mm3 06/06/18 17:10 Myelocytes # 0.0 K/mm3 06/06/18 17:10 Promyelocytes # 0.0 K/mm3 06/06/18 17:10 Blast Cells # 0.0 K/mm3 06/06/18 17:10 WBC Morphology Not Reportable 06/06/18 17:10 Hypersegmented Neuts Not Reportable 06/06/18 17:10 Hyposegmented Neuts Not Reportable 06/06/18 17:10 Hypogranular Neuts Not Reportable 06/06/18 17:10 Smudge Cells Not Reportable 06/06/18 17:10 Toxic Granulation Not Reportable 06/06/18 17:10 Toxic Vacuolation Not Reportable 06/06/18 17:10 Dohle Bodies Not Reportable 06/06/18 17:10 Pelger-Huet Anomaly Not Reportable 06/06/18 17:10 Jewel Rods Not Reportable 06/06/18 17:10 Platelet Estimate Consistent w auto 06/06/18 17:10 Clumped Platelets Not Reportable 06/06/18 17:10 Plt Clumps, EDTA Not Reportable 06/06/18 17:10 Large Platelets Not Reportable 06/06/18 17:10 Giant Platelets Not Reportable 06/06/18 17:10 Platelet Satelliting Not Reportable 06/06/18 17:10 Plt Morphology Comment Not Reportable 06/06/18 17:10 RBC Morphology Not Reportable 06/06/18 17:10 Dimorphic RBCs Not Reportable 06/06/18 17:10 Polychromasia Not Reportable 06/06/18 17:10 Hypochromasia 1+ 06/06/18 17:10 Poikilocytosis 1+ 06/06/18 17:10 Anisocytosis 1+ 06/06/18 17:10 Microcytosis Not Reportable 06/06/18 17:10 Macrocytosis Not Reportable 06/06/18 17:10 Spherocytes Not Reportable 06/06/18 17:10 Pappenheimer Bodies Not Reportable 06/06/18 17:10 Sickle Cells Not Reportable 06/06/18 17:10 Target Cells Few 06/06/18 17:10 Tear Drop Cells Not Reportable 06/06/18 17:10 Ovalocytes 1+ 06/06/18 17:10 Helmet Cells Not Reportable 06/06/18 17:10 Sung-[place] Bodies Not Reportable 06/06/18 17:10 [place] Rings Not Reportable 06/06/18 17:10 [place] Cells Not Reportable 06/06/18 17:10 Bite Cells Not Reportable 06/06/18 17:10 Crenated Cell Not Reportable 06/06/18 17:10 Elliptocytes Not Reportable 06/06/18 17:10 Acanthocytes (Spur) Not Reportable 06/06/18 17:10 Rouleaux Not Reportable 06/06/18 17:10 Hemoglobin C Crystals Not Reportable 06/06/18 17:10 Schistocytes Not Reportable 06/06/18 17:10 Malaria parasites Not Reportable 06/06/18 17:10 Anthony Bodies Not Reportable 06/06/18 17:10 Hem Pathologist Commnt No 06/06/18 17:10 Sodium 139 mmol/L (137-145) 06/07/18 07:58 Potassium 4.2 mmol/L (3.6-5.0) 06/07/18 07:58 Chloride 100.9 mmol/L (98-107) 06/07/18 07:58 Carbon Dioxide 25 mmol/L (22-30) 06/07/18 07:58 Anion Gap 17 mmol/L 06/07/18 07:58 BUN 7 mg/dL (7-17) 06/07/18 07:58 Creatinine 0.2 mg/dL (0.7-1.2) L 06/07/18 07:58 Estimated GFR > 60 ml/min 06/07/18 07:58 BUN/Creatinine Ratio 35 % 06/07/18 07:58 Glucose 108 mg/dL (65-100) H 06/07/18 07:58 POC Glucose 98 (70-105) 06/07/18 12:08 Lactic Acid 1.80 mmol/L (0.7-2.0) 06/07/18 07:58 Calcium 8.9 mg/dL (8.4-10.2) 06/07/18 07:58 Total Bilirubin 0.20 mg/dL (0.1-1.2) 06/06/18 17:45 AST 19 units/L (5-40) 06/06/18 17:45 ALT 16 units/L (7-56) 06/06/18 17:45 Alkaline Phosphatase 80 units/L (35-129) 06/06/18 17:45 Troponin T 0.014 ng/mL (0.00-0.029) 06/06/18 17:45 Total Protein 7.7 g/dL (6.3-8.2) 06/06/18 17:45 Albumin 3.3 g/dL (3.9-5) L 06/06/18 17:45 Albumin/Globulin Ratio 0.8 % 06/06/18 17:45 TSH 2.400 mlU/mL (0.270-4.200) 06/06/18 17:45 Free T4 1.34 ng/dL (0.76-1.46) 06/06/18 17:45 Urine Color Yellow (Yellow) 06/06/18 18:46 Urine Turbidity Clear (Clear) 06/06/18 18:46 Urine pH 7.0 (5.0-7.0) 06/06/18 18:46 Ur Specific [place] 1.006 (1.003-1.030) 06/06/18 18:46 Urine Protein <15 mg/dl mg/dL (Negative) 06/06/18 18:46 Urine Glucose (UA) Neg mg/dL (Negative) 06/06/18 18:46 Urine Ketones Neg mg/dL (Negative) 06/06/18 18:46 Urine Blood Neg (Negative) 06/06/18 18:46 Urine Nitrite Neg (Negative) 06/06/18 18:46 Urine Bilirubin Neg (Negative) 06/06/18 18:46 Urine Urobilinogen < 2.0 mg/dL (<2.0) 06/06/18 18:46 Ur Leukocyte Esterase Neg (Negative) 06/06/18 18:46 Urine WBC (Auto) 1.0 /HPF (0.0-6.0) 06/06/18 18:46 Urine RBC (Auto) 2.0 /HPF (0.0-6.0) 06/06/18 18:46 U Epithel Cells (Auto) 1.0 /HPF (0-13.0) 06/06/18 18:46 Blood Type A POSITIVE 06/06/18 17:45 Antibody Screen Negative 06/06/18 17:45 Active Medications - Current Medications Current Medications: Generic Name Dose Route Start Last Admin Trade Name Freq PRN Reason Stop Dose Admin Acetaminophen 650 mg 06/07/18 02:37 Tylenol PO Q4H PRN Pain MILD(1-3)/Fever >100.5/JACKSON Dextrose 50 ml 06/06/18 23:43 D50w (25gm) Syringe IV PRN PRN Hypoglycemia Levofloxacin/Dextrose 750 mg in 150 mls @ 100 mls/hr 06/07/18 02:36 06/07/18 03:46 Levaquin 750mg/150ml IV 100 mls/hr Q24HR@0600 BEBE Administration Protocol Sodium Chloride 1,000 mls @ 100 mls/hr 06/07/18 03:00 06/07/18 03:46 Nacl 0.9% 1000 Ml IV 100 mls/hr DIRECT BEBE Administration Lansoprazole 30 mg 06/07/18 12:00 Prevacid Solutab FEEDTUBE QDAY BEBE Ondansetron HCl 4 mg 06/07/18 02:37 Zofran IV Q4H PRN Nausea And Vomiting Polyethylene Glycol 17 gm 06/07/18 12:00 Miralax 3350 FEEDTUBE QDAY BEBE Sodium Chloride 10 ml 06/07/18 10:00 Sodium Chloride Flush Syringe 10 Ml IV BID BEBE Sodium Chloride 10 ml 06/06/18 23:43 Sodium Chloride Flush Syringe 10 Ml IV PRN PRN LINE FLUSH
[2018-06-07] MEDS: SODIUM CHLORIDE FLUSH SYRINGE 10 ML IV SCH ×2 (14:45→21:59)
[2018-06-07] MEDS: MIRALAX 3350 FEEDTUBE SCH (14:46)
[2018-06-07] MEDS: PREVACID SOLUTAB FEEDTUBE SCH (14:46)
[2018-06-07] MEDS ORDERED: VANCOMYCIN PHARMACY TO DOSE IV SCH (15:00)
[2018-06-07] MEDS ORDERED: VANCOMYCIN 1,500 MG in NACL 0.9% 500 ML 500 ML IV ONE (16:00)
[2018-06-07] MEDS: DIFLUCAN FEEDTUBE SCH (19:35)
[2018-06-07] MEDS: ZOSYN/NS 4.5GM/100ML 4.5 GM/100 ML VIAL IV SCH (21:57)
[2018-06-08] MEDS: ZOSYN/NS 4.5GM/100ML 4.5 GM/100 ML VIAL IV SCH ×4 (00:01→21:06)
[2018-06-08] MEDS ORDERED: VANCOMYCIN 1,500 MG in NACL 0.9% 500 ML 500 ML IV SCH (04:00)
[2018-06-08 05:59] LABS: Hematocrit 32.8 % (30.3-42.9); Hemoglobin 10.4 gm/dl (10.1-14.3); Lymphocytes % (Auto) 20.7 % (13.4-35.0); Mean Corpuscular HGB Conc 32 % (30-34); Mean Corpuscular Volume 72 fl (79-97); Mean Platelet Volume 8.1 fl (6-12); Monocytes % (Auto) 5.1 % (0.0-7.3); Platelet Count 383 K/mm3 (140-440); Red Blood Count 4.55 M/mm3 (3.65-5.03); Red Cell Distribution Width 19.5 % (13.2-15.2)
[2018-06-08 06:00] LABS: Basophils % (Auto) 0.4 % (0.0-1.8); Eosinophils # (Auto) 0.1 K/mm3 (0.0-0.4); Eosinophils % (Auto) 0.8 % (0.0-4.3); Monocytes # (Auto) 0.5 K/mm3 (0.0-0.8)
[2018-06-08] MEDS: NACL 0.9% 1000 ML 1,000 ML IV SCH ×2 (06:07→20:50)
--- NOTE | 2018-06-08 11:10 | Progress Note ---
Assessment and Plan Assessment and plan: Severe sepsis secondary to HCAP -Continue IV Vanc and Zosyn, WBC level trending down -Blood cultures negative so far Chronic respiratory failure with hypoxia -Status post tracheostomy -Continue trach care SVT on admission -Stable, continue telemetry monitoring Vaginal bleed -No current bleeding -H/H stable -Pelvic ultrasound negative for acute findings Oral candidiasis -Continue oral Diflucan Hypertension -Uncontrolled, home antihypertensives resumed DM2 -Stable History of CVA with chronic debility and non-verbal -Continue supportive care Sacral decubitus ulcers stage IV -Wound care nurse consulted Chronic dysphagia status post PEG tube placement -Continue tube feeding -Dietitian following Disposition: For discharge when medically stable History Interval history: Patient is nonverbal. No issues reported overnight. Hospitalist Physical - Constitutional Vitals: Temp Pulse Resp BP Pulse Ox 98.9 F 99 H 20 157/73 98 06/08/18 07:39 06/08/18 07:39 06/08/18 07:39 06/08/18 07:39 06/08/18 07:39 General appearance: Present: no acute distress - EENT Eyes: Present: PERRL ENT: thrush - Neck Neck: Present: supple, other (status post tracheostomy) - Respiratory Respiratory effort: normal Respiratory: bilateral: rales - Cardiovascular Rhythm: regular (with tachycardia) Heart Sounds: Present: S1 & S2 - Extremities Extremities: No edema - Abdominal General gastrointestinal: soft, non-tender, non-distended, normal bowel sounds, other (PEG tube noted) - Integumentary Integumentary: Present: erythema (decubitus ulcers) - Neurologic Neurologic: other (patient is nonverbal) Results - Labs CBC & Chem 7: 06/08/18 04:43 06/07/18 07:58 Labs: Laboratory Last Values WBC 9.8 K/mm3 (4.5-11.0) 06/08/18 04:43 RBC 4.55 M/mm3 (3.65-5.03) 06/08/18 04:43 Hgb 10.4 gm/dl (10.1-14.3) 06/08/18 04:43 Hct 32.8 % (30.3-42.9) 06/08/18 04:43 MCV 72 fl (79-97) L 06/08/18 04:43 MCH 23 pg (28-32) L 06/08/18 04:43 MCHC 32 % (30-34) 06/08/18 04:43 RDW 19.5 % (13.2-15.2) H 06/08/18 04:43 Plt Count 383 K/mm3 (140-440) 06/08/18 04:43 Lymph % (Auto) 20.7 % (13.4-35.0) 06/08/18 04:43 [place] % (Auto) 5.1 % (0.0-7.3) 06/08/18 04:43 Eos % (Auto) 0.8 % (0.0-4.3) 06/08/18 04:43 Baso % (Auto) 0.4 % (0.0-1.8) 06/08/18 04:43 Lymph # 2.0 K/mm3 (1.2-5.4) 06/08/18 04:43 [place] # 0.5 K/mm3 (0.0-0.8) 06/08/18 04:43 Eos # 0.1 K/mm3 (0.0-0.4) 06/08/18 04:43 Baso # 0.0 K/mm3 (0.0-0.1) 06/08/18 04:43 Add Manual Diff Complete 06/06/18 17:10 Total Counted 100 06/06/18 17:10 Seg Neutrophils % 73.0 % (40.0-70.0) H 06/08/18 04:43 Seg Neuts % (Manual) 78.0 % (40.0-70.0) H 06/06/18 17:10 Band Neutrophils % 0 % 06/06/18 17:10 Lymphocytes % (Manual) 17.0 % (13.4-35.0) 06/06/18 17:10 Reactive Lymphs % (Man) 0 % 06/06/18 17:10 Monocytes % (Manual) 3.0 % (0.0-7.3) 06/06/18 17:10 Eosinophils % (Manual) 0 % (0.0-4.3) 06/06/18 17:10 Basophils % (Manual) 1.0 % (0.0-1.8) 06/06/18 17:10 Metamyelocytes % 1.0 % 06/06/18 17:10 Myelocytes % 0 % 06/06/18 17:10 Promyelocytes % 0 % 06/06/18 17:10 Blast Cells % 0 % 06/06/18 17:10 Nucleated RBC % Not Reportable 06/06/18 17:10 Seg Neutrophils # 7.1 K/mm3 (1.8-7.7) 06/08/18 04:43 Seg Neutrophils # Man 10.5 K/mm3 (1.8-7.7) H 06/06/18 17:10 Band Neutrophils # 0.0 K/mm3 06/06/18 17:10 Lymphocytes # (Manual) 2.3 K/mm3 (1.2-5.4) 06/06/18 17:10 Abs React Lymphs (Man) 0.0 K/mm3 06/06/18 17:10 Monocytes # (Manual) 0.4 K/mm3 (0.0-0.8) 06/06/18 17:10 Eosinophils # (Manual) 0.0 K/mm3 (0.0-0.4) 06/06/18 17:10 Basophils # (Manual) 0.1 K/mm3 (0.0-0.1) 06/06/18 17:10 Metamyelocytes # 0.1 K/mm3 06/06/18 17:10 Myelocytes # 0.0 K/mm3 06/06/18 17:10 Promyelocytes # 0.0 K/mm3 06/06/18 17:10 Blast Cells # 0.0 K/mm3 06/06/18 17:10 WBC Morphology Not Reportable 06/06/18 17:10 Hypersegmented Neuts Not Reportable 06/06/18 17:10 Hyposegmented Neuts Not Reportable 06/06/18 17:10 Hypogranular Neuts Not Reportable 06/06/18 17:10 Smudge Cells Not Reportable 06/06/18 17:10 Toxic Granulation Not Reportable 06/06/18 17:10 Toxic Vacuolation Not Reportable 06/06/18 17:10 Dohle Bodies Not Reportable 06/06/18 17:10 Pelger-Huet Anomaly Not Reportable 06/06/18 17:10 Jewel Rods Not Reportable 06/06/18 17:10 Platelet Estimate Consistent w auto 06/06/18 17:10 Clumped Platelets Not Reportable 06/06/18 17:10 Plt Clumps, EDTA Not Reportable 06/06/18 17:10 Large Platelets Not Reportable 06/06/18 17:10 Giant Platelets Not Reportable 06/06/18 17:10 Platelet Satelliting Not Reportable 06/06/18 17:10 Plt Morphology Comment Not Reportable 06/06/18 17:10 RBC Morphology Not Reportable 06/06/18 17:10 Dimorphic RBCs Not Reportable 06/06/18 17:10 Polychromasia Not Reportable 06/06/18 17:10 Hypochromasia 1+ 06/06/18 17:10 Poikilocytosis 1+ 06/06/18 17:10 Anisocytosis 1+ 06/06/18 17:10 Microcytosis Not Reportable 06/06/18 17:10 Macrocytosis Not Reportable 06/06/18 17:10 Spherocytes Not Reportable 06/06/18 17:10 Pappenheimer Bodies Not Reportable 06/06/18 17:10 Sickle Cells Not Reportable 06/06/18 17:10 Target Cells Few 06/06/18 17:10 Tear Drop Cells Not Reportable 06/06/18 17:10 Ovalocytes 1+ 06/06/18 17:10 Helmet Cells Not Reportable 06/06/18 17:10 Sung-[place] Bodies Not Reportable 06/06/18 17:10 [place] Rings Not Reportable 06/06/18 17:10 [place] Cells Not Reportable 06/06/18 17:10 Bite Cells Not Reportable 06/06/18 17:10 Crenated Cell Not Reportable 06/06/18 17:10 Elliptocytes Not Reportable 06/06/18 17:10 Acanthocytes (Spur) Not Reportable 06/06/18 17:10 Rouleaux Not Reportable 06/06/18 17:10 Hemoglobin C Crystals Not Reportable 06/06/18 17:10 Schistocytes Not Reportable 06/06/18 17:10 Malaria parasites Not Reportable 06/06/18 17:10 Anthony Bodies Not Reportable 06/06/18 17:10 Hem Pathologist Commnt No 06/06/18 17:10 Sodium 139 mmol/L (137-145) 06/07/18 07:58 Potassium 4.2 mmol/L (3.6-5.0) 06/07/18 07:58 Chloride 100.9 mmol/L (98-107) 06/07/18 07:58 Carbon Dioxide 25 mmol/L (22-30) 06/07/18 07:58 Anion Gap 17 mmol/L 06/07/18 07:58 BUN 7 mg/dL (7-17) 06/07/18 07:58 Creatinine 0.2 mg/dL (0.7-1.2) L 06/07/18 07:58 Estimated GFR > 60 ml/min 06/07/18 07:58 BUN/Creatinine Ratio 35 % 06/07/18 07:58 Glucose 108 mg/dL (65-100) H 06/07/18 07:58 POC Glucose 108 (70-105) H 06/08/18 06:44 Lactic Acid 1.80 mmol/L (0.7-2.0) 06/07/18 07:58 Calcium 8.9 mg/dL (8.4-10.2) 06/07/18 07:58 Total Bilirubin 0.20 mg/dL (0.1-1.2) 06/06/18 17:45 AST 19 units/L (5-40) 06/06/18 17:45 ALT 16 units/L (7-56) 06/06/18 17:45 Alkaline Phosphatase 80 units/L (35-129) 06/06/18 17:45 Troponin T 0.014 ng/mL (0.00-0.029) 06/06/18 17:45 Total Protein 7.7 g/dL (6.3-8.2) 06/06/18 17:45 Albumin 3.3 g/dL (3.9-5) L 06/06/18 17:45 Albumin/Globulin Ratio 0.8 % 06/06/18 17:45 TSH 2.400 mlU/mL (0.270-4.200) 06/06/18 17:45 Free T4 1.34 ng/dL (0.76-1.46) 06/06/18 17:45 Urine Color Yellow (Yellow) 06/06/18 18:46 Urine Turbidity Clear (Clear) 06/06/18 18:46 Urine pH 7.0 (5.0-7.0) 06/06/18 18:46 Ur Specific [place] 1.006 (1.003-1.030) 06/06/18 18:46 Urine Protein <15 mg/dl mg/dL (Negative) 06/06/18 18:46 Urine Glucose (UA) Neg mg/dL (Negative) 06/06/18 18:46 Urine Ketones Neg mg/dL (Negative) 06/06/18 18:46 Urine Blood Neg (Negative) 06/06/18 18:46 Urine Nitrite Neg (Negative) 06/06/18 18:46 Urine Bilirubin Neg (Negative) 06/06/18 18:46 Urine Urobilinogen < 2.0 mg/dL (<2.0) 06/06/18 18:46 Ur Leukocyte Esterase Neg (Negative) 06/06/18 18:46 Urine WBC (Auto) 1.0 /HPF (0.0-6.0) 06/06/18 18:46 Urine RBC (Auto) 2.0 /HPF (0.0-6.0) 06/06/18 18:46 U Epithel Cells (Auto) 1.0 /HPF (0-13.0) 06/06/18 18:46 Blood Type A POSITIVE 06/06/18 17:45 Antibody Screen Negative 06/06/18 17:45 Active Medications - Current Medications Current Medications: Generic Name Dose Route Start Last Admin Trade Name Freq PRN Reason Stop Dose Admin Acetaminophen 650 mg 06/07/18 02:37 Tylenol PO Q4H PRN Pain MILD(1-3)/Fever >100.5/JACKSON Dextrose 50 ml 06/06/18 23:43 D50w (25gm) Syringe IV PRN PRN Hypoglycemia Fluconazole 100 mg 06/07/18 16:00 06/07/18 19:35 Diflucan FEEDTUBE 100 mg QDAY BEBE Administration Sodium Chloride 1,000 mls @ 100 mls/hr 06/07/18 03:00 06/08/18 06:07 Nacl 0.9% 1000 Ml IV 100 mls/hr DIRECT BEBE Administration Piperacillin Sod/Tazobactam Sod 4.5 gm in 100 mls @ 200 mls/hr 06/07/18 16:00 06/08/18 06:01 Zosyn/Ns 4.5gm/100ml IV 200 mls/hr Q8H BEBE Administration Protocol Vancomycin HCl 1,500 mg/ 530 mls @ 265 mls/hr 06/09/18 10:00 Sodium Chloride IV Q24HR BEBE Lansoprazole 30 mg 06/07/18 12:00 06/07/18 14:46 Prevacid Solutab FEEDTUBE 30 mg QDAY BEBE Administration Ondansetron HCl 4 mg 06/07/18 02:37 Zofran IV Q4H PRN Nausea And Vomiting Polyethylene Glycol 17 gm 06/07/18 12:00 06/07/18 14:46 Miralax 3350 FEEDTUBE 17 gm QDAY BEBE Administration Sodium Chloride 10 ml 06/07/18 10:00 06/07/18 21:59 Sodium Chloride Flush Syringe 10 Ml IV 10 ml BID BEBE Administration Sodium Chloride 10 ml 06/06/18 23:43 Sodium Chloride Flush Syringe 10 Ml IV PRN PRN LINE FLUSH
[2018-06-08] MEDS ORDERED: NON-FORMULARY (Metoprolol 25 MG) NGTUBE SCH (11:15)
--- NOTE | 2018-06-08 11:18 | Gastroenterology Progress Note ---
<VIRAL BOCANEGRA - Last Filed: 06/08/18 11:24> Assessment and Plan 1.rectal bleeding? -H/H WNL (10.4/32.8)-stable -continue to monitor H/H and transfuse as needed -no active signs of bleeding overnight or this am per nursing -etiology unclear (possible vaginal bleeding upon admission and sacral decubitus present) -no plan for scope at this time given no clinical evidence of significant GI bleeding, unless overt bleeding develops -continue PPI and miralax -continue supportive care -no further recommendations from GI at this time. Will sign off, please call back if needed. Subjective Date of service: 06/08/18 Principal diagnosis: rectal bleeding Interval history: No active signs of bleeding overnight or this am per nursing. Objective - Constitutional Vitals: Temp Pulse Resp BP Pulse Ox 98.9 F 99 H 20 157/73 98 06/08/18 07:39 06/08/18 07:39 06/08/18 07:39 06/08/18 07:39 06/08/18 07:39 General appearance: no acute distress, other (nonverbal) - EENT ENT: other (+trach) - Respiratory Respiratory: bilateral: CTA (anterior) - Cardiovascular Rhythm: regular - Gastrointestinal General gastrointestinal: Present: soft, non-distended, normal bowel sounds, other (+PEG) - Musculoskeletal Musculoskeletal: other (Sacral decubitus present) - Labs CBC & Chem 7: 06/08/18 04:43 06/07/18 07:58 Labs: Laboratory Results - last 24 hr 06/07/18 06/08/18 06/08/18 12:08 01:06 04:43 WBC 9.8 RBC 4.55 Hgb 10.4 Hct 32.8 MCV 72 L MCH 23 L MCHC 32 RDW 19.5 H Plt Count 383 Lymph % (Auto) 20.7 [place] % (Auto) 5.1 Eos % (Auto) 0.8 Baso % (Auto) 0.4 Lymph # 2.0 [place] # 0.5 Eos # 0.1 Baso # 0.0 Seg Neutrophils % 73.0 H Seg Neutrophils # 7.1 POC Glucose 98 112 H 06/08/18 06:44 WBC RBC Hgb Hct MCV MCH MCHC RDW Plt Count Lymph % (Auto) [place] % (Auto) Eos % (Auto) Baso % (Auto) Lymph # [place] # Eos # Baso # Seg Neutrophils % Seg Neutrophils # POC Glucose 108 H <MEENA VALENCIA R - Last Filed: 06/08/18 15:51> Assessment and Plan Pt stable as noted above. Tried calling pt's sister - no answer, and her son - number not connected. Since no evidence of bleeding, recommendations as above. Will sign off. Thanks. Objective - Constitutional Vitals: Temp Pulse Resp BP Pulse Ox 98.5 F 99 H 18 156/70 98 06/08/18 12:11 06/08/18 12:11 06/08/18 12:11 06/08/18 12:01 06/08/18 12:11 - Labs CBC & Chem 7: 06/08/18 04:43 06/07/18 07:58 Labs: Laboratory Results - last 24 hr 06/08/18 06/08/18 06/08/18 01:06 04:43 06:44 WBC 9.8 RBC 4.55 Hgb 10.4 Hct 32.8 MCV 72 L MCH 23 L MCHC 32 RDW 19.5 H Plt Count 383 Lymph % (Auto) 20.7 [place] % (Auto) 5.1 Eos % (Auto) 0.8 Baso % (Auto) 0.4 Lymph # 2.0 [place] # 0.5 Eos # 0.1 Baso # 0.0 Seg Neutrophils % 73.0 H Seg Neutrophils # 7.1 POC Glucose 112 H 108 H 06/08/18 12:36 WBC RBC Hgb Hct MCV MCH MCHC RDW Plt Count Lymph % (Auto) [place] % (Auto) Eos % (Auto) Baso % (Auto) Lymph # [place] # Eos # Baso # Seg Neutrophils % Seg Neutrophils # POC Glucose 119 H
[2018-06-08] MEDS: PREVACID SOLUTAB FEEDTUBE SCH (11:30)
[2018-06-08] MEDS ORDERED: LOPRESSOR FEEDTUBE SCH (11:30)
[2018-06-08] MEDS: DIFLUCAN FEEDTUBE SCH (11:30)
[2018-06-08] MEDS: MIRALAX 3350 FEEDTUBE SCH (11:30)
[2018-06-08] MEDS: SODIUM CHLORIDE FLUSH SYRINGE 10 ML IV SCH ×2 (11:31→21:19)
[2018-06-08] MEDS: KEPPRA FEEDTUBE SCH ×2 (12:01→21:05)
[2018-06-08] MEDS: NORVASC FEEDTUBE SCH (12:02)
[2018-06-08] MEDS: PEPCID FEEDTUBE SCH ×2 (12:02→21:06)
[2018-06-08] MEDS ORDERED: SODIUM BICARBONATE FEEDTUBE PRN (14:13)
[2018-06-08] MEDS ORDERED: SIMPLE SYRUP FEEDTUBE PRN ×2 (14:13)
[2018-06-08] MEDS ORDERED: PANCREAZE DR 10,500 UNIT FEEDTUBE PRN (14:13)
[2018-06-08] MEDS: LOPRESSOR PO SCH (21:17)
[2018-06-09] MEDS: ZOSYN/NS 4.5GM/100ML 4.5 GM/100 ML VIAL IV SCH ×3 (05:44→22:36)
[2018-06-09] MEDS: NACL 0.9% 1000 ML 1,000 ML IV SCH (05:46)
[2018-06-09] MEDS: VANCOMYCIN 1,500 MG in NACL 0.9% 500 ML 500 ML IV SCH (09:35)
[2018-06-09] MEDS: DIFLUCAN FEEDTUBE SCH (09:36)
[2018-06-09] MEDS: KEPPRA FEEDTUBE SCH ×2 (09:36→22:34)
[2018-06-09] MEDS: SODIUM CHLORIDE FLUSH SYRINGE 10 ML IV SCH ×2 (09:36→22:34)
[2018-06-09] MEDS: PEPCID FEEDTUBE SCH ×2 (09:37→22:34)
[2018-06-09] MEDS: PREVACID SOLUTAB FEEDTUBE SCH (09:37)
[2018-06-09] MEDS: LOPRESSOR PO SCH ×2 (09:38→22:35)
[2018-06-09] MEDS: NORVASC FEEDTUBE SCH (09:38)
[2018-06-09] MEDS: MIRALAX 3350 FEEDTUBE SCH (09:39)
--- NOTE | 2018-06-09 12:56 | Progress Note ---
Assessment and Plan Assessment and plan: Severe sepsis secondary to HCAP -Continue IV Vanc and Zosyn for 48hrs then consider taper -Blood cultures negative so far Chronic respiratory failure with hypoxia -Status post tracheostomy -Continue trach care SVT on admission -Stable, continue telemetry monitoring Vaginal bleed -No current bleeding -H/H stable -Pelvic ultrasound negative for acute findings Oral candidiasis -Continue oral Diflucan Hypertension -Controlled on current antihypertensives DM2 -Stable History of CVA with chronic debility and non-verbal -Continue supportive care Chronic metabolic encephalopathy -at baseline Seizure disorder -Stable on Keppra Chronic sacral decubitus ulcers stage IV -Wound care nurse consulted Chronic dysphagia status post PEG tube placement -Continue tube feeding -Dietitian following Disposition: For possible d/c in 2-3 days if clinically stable History Interval history: Patient is nonverbal. No issues reported overnight. Hospitalist Physical - Constitutional Vitals: Temp Pulse Resp BP Pulse Ox 98.2 F 87 18 136/63 95 06/09/18 07:31 06/09/18 09:38 06/09/18 07:31 06/09/18 09:38 06/09/18 07:39 General appearance: Present: no acute distress - EENT Eyes: Present: PERRL ENT: thrush - Neck Neck: Present: supple, other (status post tracheostomy) - Respiratory Respiratory effort: normal Respiratory: bilateral: rales - Cardiovascular Rhythm: regular Heart Sounds: Present: S1 & S2 - Extremities Extremities: No edema - Abdominal General gastrointestinal: soft, non-distended, normal bowel sounds, other (peg tube noted) - Integumentary Integumentary: Present: erythema (sacral decubitus ulcers) - Neurologic Neurologic: other (pt is non-verbal) Results - Labs CBC & Chem 7: 06/08/18 04:43 06/07/18 07:58 Labs: Laboratory Last Values WBC 9.8 K/mm3 (4.5-11.0) 06/08/18 04:43 RBC 4.55 M/mm3 (3.65-5.03) 06/08/18 04:43 Hgb 10.4 gm/dl (10.1-14.3) 06/08/18 04:43 Hct 32.8 % (30.3-42.9) 06/08/18 04:43 MCV 72 fl (79-97) L 06/08/18 04:43 MCH 23 pg (28-32) L 06/08/18 04:43 MCHC 32 % (30-34) 06/08/18 04:43 RDW 19.5 % (13.2-15.2) H 06/08/18 04:43 Plt Count 383 K/mm3 (140-440) 06/08/18 04:43 Lymph % (Auto) 20.7 % (13.4-35.0) 06/08/18 04:43 [place] % (Auto) 5.1 % (0.0-7.3) 06/08/18 04:43 Eos % (Auto) 0.8 % (0.0-4.3) 06/08/18 04:43 Baso % (Auto) 0.4 % (0.0-1.8) 06/08/18 04:43 Lymph # 2.0 K/mm3 (1.2-5.4) 06/08/18 04:43 [place] # 0.5 K/mm3 (0.0-0.8) 06/08/18 04:43 Eos # 0.1 K/mm3 (0.0-0.4) 06/08/18 04:43 Baso # 0.0 K/mm3 (0.0-0.1) 06/08/18 04:43 Add Manual Diff Complete 06/06/18 17:10 Total Counted 100 06/06/18 17:10 Seg Neutrophils % 73.0 % (40.0-70.0) H 06/08/18 04:43 Seg Neuts % (Manual) 78.0 % (40.0-70.0) H 06/06/18 17:10 Band Neutrophils % 0 % 06/06/18 17:10 Lymphocytes % (Manual) 17.0 % (13.4-35.0) 06/06/18 17:10 Reactive Lymphs % (Man) 0 % 06/06/18 17:10 Monocytes % (Manual) 3.0 % (0.0-7.3) 06/06/18 17:10 Eosinophils % (Manual) 0 % (0.0-4.3) 06/06/18 17:10 Basophils % (Manual) 1.0 % (0.0-1.8) 06/06/18 17:10 Metamyelocytes % 1.0 % 06/06/18 17:10 Myelocytes % 0 % 06/06/18 17:10 Promyelocytes % 0 % 06/06/18 17:10 Blast Cells % 0 % 06/06/18 17:10 Nucleated RBC % Not Reportable 06/06/18 17:10 Seg Neutrophils # 7.1 K/mm3 (1.8-7.7) 06/08/18 04:43 Seg Neutrophils # Man 10.5 K/mm3 (1.8-7.7) H 06/06/18 17:10 Band Neutrophils # 0.0 K/mm3 06/06/18 17:10 Lymphocytes # (Manual) 2.3 K/mm3 (1.2-5.4) 06/06/18 17:10 Abs React Lymphs (Man) 0.0 K/mm3 06/06/18 17:10 Monocytes # (Manual) 0.4 K/mm3 (0.0-0.8) 06/06/18 17:10 Eosinophils # (Manual) 0.0 K/mm3 (0.0-0.4) 06/06/18 17:10 Basophils # (Manual) 0.1 K/mm3 (0.0-0.1) 06/06/18 17:10 Metamyelocytes # 0.1 K/mm3 06/06/18 17:10 Myelocytes # 0.0 K/mm3 06/06/18 17:10 Promyelocytes # 0.0 K/mm3 06/06/18 17:10 Blast Cells # 0.0 K/mm3 06/06/18 17:10 WBC Morphology Not Reportable 06/06/18 17:10 Hypersegmented Neuts Not Reportable 06/06/18 17:10 Hyposegmented Neuts Not Reportable 06/06/18 17:10 Hypogranular Neuts Not Reportable 06/06/18 17:10 Smudge Cells Not Reportable 06/06/18 17:10 Toxic Granulation Not Reportable 06/06/18 17:10 Toxic Vacuolation Not Reportable 06/06/18 17:10 Dohle Bodies Not Reportable 06/06/18 17:10 Pelger-Huet Anomaly Not Reportable 06/06/18 17:10 Jewel Rods Not Reportable 06/06/18 17:10 Platelet Estimate Consistent w auto 06/06/18 17:10 Clumped Platelets Not Reportable 06/06/18 17:10 Plt Clumps, EDTA Not Reportable 06/06/18 17:10 Large Platelets Not Reportable 06/06/18 17:10 Giant Platelets Not Reportable 06/06/18 17:10 Platelet Satelliting Not Reportable 06/06/18 17:10 Plt Morphology Comment Not Reportable 06/06/18 17:10 RBC Morphology Not Reportable 06/06/18 17:10 Dimorphic RBCs Not Reportable 06/06/18 17:10 Polychromasia Not Reportable 06/06/18 17:10 Hypochromasia 1+ 06/06/18 17:10 Poikilocytosis 1+ 06/06/18 17:10 Anisocytosis 1+ 06/06/18 17:10 Microcytosis Not Reportable 06/06/18 17:10 Macrocytosis Not Reportable 06/06/18 17:10 Spherocytes Not Reportable 06/06/18 17:10 Pappenheimer Bodies Not Reportable 06/06/18 17:10 Sickle Cells Not Reportable 06/06/18 17:10 Target Cells Few 06/06/18 17:10 Tear Drop Cells Not Reportable 06/06/18 17:10 Ovalocytes 1+ 06/06/18 17:10 Helmet Cells Not Reportable 06/06/18 17:10 Sung-[place] Bodies Not Reportable 06/06/18 17:10 [place] Rings Not Reportable 06/06/18 17:10 Harmony Cells Not Reportable 06/06/18 17:10 Bite Cells Not Reportable 06/06/18 17:10 Crenated Cell Not Reportable 06/06/18 17:10 Elliptocytes Not Reportable 06/06/18 17:10 Acanthocytes (Spur) Not Reportable 06/06/18 17:10 Rouleaux Not Reportable 06/06/18 17:10 Hemoglobin C Crystals Not Reportable 06/06/18 17:10 Schistocytes Not Reportable 06/06/18 17:10 Malaria parasites Not Reportable 06/06/18 17:10 Anthony Bodies Not Reportable 06/06/18 17:10 Hem Pathologist Commnt No 06/06/18 17:10 Sodium 139 mmol/L (137-145) 06/07/18 07:58 Potassium 4.2 mmol/L (3.6-5.0) 06/07/18 07:58 Chloride 100.9 mmol/L (98-107) 06/07/18 07:58 Carbon Dioxide 25 mmol/L (22-30) 06/07/18 07:58 Anion Gap 17 mmol/L 06/07/18 07:58 BUN 7 mg/dL (7-17) 06/07/18 07:58 Creatinine 0.2 mg/dL (0.7-1.2) L 06/07/18 07:58 Estimated GFR > 60 ml/min 06/07/18 07:58 BUN/Creatinine Ratio 35 % 06/07/18 07:58 Glucose 108 mg/dL (65-100) H 06/07/18 07:58 POC Glucose 148 (70-105) H 06/09/18 11:17 Lactic Acid 1.80 mmol/L (0.7-2.0) 06/07/18 07:58 Calcium 8.9 mg/dL (8.4-10.2) 06/07/18 07:58 Total Bilirubin 0.20 mg/dL (0.1-1.2) 06/06/18 17:45 AST 19 units/L (5-40) 06/06/18 17:45 ALT 16 units/L (7-56) 06/06/18 17:45 Alkaline Phosphatase 80 units/L (35-129) 06/06/18 17:45 Troponin T 0.014 ng/mL (0.00-0.029) 06/06/18 17:45 Total Protein 7.7 g/dL (6.3-8.2) 06/06/18 17:45 Albumin 3.3 g/dL (3.9-5) L 06/06/18 17:45 Albumin/Globulin Ratio 0.8 % 06/06/18 17:45 TSH 2.400 mlU/mL (0.270-4.200) 06/06/18 17:45 Free T4 1.34 ng/dL (0.76-1.46) 06/06/18 17:45 Urine Color Yellow (Yellow) 06/06/18 18:46 Urine Turbidity Clear (Clear) 06/06/18 18:46 Urine pH 7.0 (5.0-7.0) 06/06/18 18:46 Ur Specific [place] 1.006 (1.003-1.030) 06/06/18 18:46 Urine Protein <15 mg/dl mg/dL (Negative) 06/06/18 18:46 Urine Glucose (UA) Neg mg/dL (Negative) 06/06/18 18:46 Urine Ketones Neg mg/dL (Negative) 06/06/18 18:46 Urine Blood Neg (Negative) 06/06/18 18:46 Urine Nitrite Neg (Negative) 06/06/18 18:46 Urine Bilirubin Neg (Negative) 06/06/18 18:46 Urine Urobilinogen < 2.0 mg/dL (<2.0) 06/06/18 18:46 Ur Leukocyte Esterase Neg (Negative) 06/06/18 18:46 Urine WBC (Auto) 1.0 /HPF (0.0-6.0) 06/06/18 18:46 Urine RBC (Auto) 2.0 /HPF (0.0-6.0) 06/06/18 18:46 U Epithel Cells (Auto) 1.0 /HPF (0-13.0) 06/06/18 18:46 Blood Type A POSITIVE 06/06/18 17:45 Antibody Screen Negative 06/06/18 17:45 Active Medications - Current Medications Current Medications: Generic Name Dose Route Start Last Admin Trade Name Freq PRN Reason Stop Dose Admin Acetaminophen 650 mg 06/07/18 02:37 06/08/18 20:50 Tylenol PO 650 mg Q4H PRN Administration Pain MILD(1-3)/Fever >100.5/[place] Amlodipine Besylate 10 mg 06/08/18 12:00 06/09/18 09:38 Norvasc FEEDTUBE 10 mg DAILY BEBE Administration Lipase/Protease/Amylase 1 each 06/08/18 14:13 Pancreaze 10,500 Unit FEEDTUBE PRN PRN For Clogged Feeding Tube Dextrose 50 ml 06/06/18 23:43 D50w (25gm) Syringe IV PRN PRN Hypoglycemia Famotidine 20 mg 06/08/18 12:00 06/09/18 09:37 Pepcid FEEDTUBE 20 mg BID BEBE Administration Fluconazole 100 mg 06/07/18 16:00 06/09/18 09:36 Diflucan FEEDTUBE 100 mg QDAY BEBE Administration Sodium Chloride 1,000 mls @ 100 mls/hr 06/07/18 03:00 06/09/18 05:46 Nacl 0.9% 1000 Ml IV 100 mls/hr DIRECT BEBE Administration Piperacillin Sod/Tazobactam Sod 4.5 gm in 100 mls @ 200 mls/hr 06/07/18 16:00 06/09/18 05:44 Zosyn/Ns 4.5gm/100ml IV 200 mls/hr Q8H BEBE Administration Protocol Vancomycin HCl 1,500 mg/ 530 mls @ 265 mls/hr 06/09/18 10:00 06/09/18 09:35 Sodium Chloride IV 265 mls/hr Q24HR BEBE Administration Lansoprazole 30 mg 06/07/18 12:00 06/09/18 09:37 Prevacid Solutab FEEDTUBE 30 mg QDAY BEBE Administration Levetiracetam 100 mg 06/08/18 12:00 06/09/18 09:36 Keppra FEEDTUBE 100 mg Q12HR BEBE Administration Metoprolol Tartrate 50 mg 06/08/18 22:00 06/09/18 09:38 Lopressor PO 50 mg BID BEBE Administration Ondansetron HCl 4 mg 06/07/18 02:37 Zofran IV Q4H PRN Nausea And Vomiting Polyethylene Glycol 17 gm 06/07/18 12:00 06/09/18 09:39 Miralax 3350 FEEDTUBE Not Given QDAY BEBE Simple Syrup 15 ml 06/08/18 14:13 Simple Syrup FEEDTUBE PRN PRN Hypoglycemia Simple Syrup 30 ml 06/08/18 14:13 Simple Syrup FEEDTUBE PRN PRN Hypoglycemia Sodium Bicarbonate 325 mg 06/08/18 14:13 Sodium Bicarbonate FEEDTUBE PRN PRN For Clogged Feeding Tube Sodium Chloride 10 ml 06/07/18 10:00 06/09/18 09:36 Sodium Chloride Flush Syringe 10 Ml IV 10 ml BID BEBE Administration Sodium Chloride 10 ml 06/06/18 23:43 Sodium Chloride Flush Syringe 10 Ml IV PRN PRN LINE FLUSH Nutrition/Malnutrition Assess - Dietary Evaluation Nutrition/Malnutrition Findings: Nutrition Notes Start: 06/08/18 13:44 Freq: Status: Active Protocol: Document 06/08/18 13:44 RM (Rec: 06/08/18 14:13 RM [id number]) Nutrition Notes Need for Assessment generated from: equipment 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 Greg 11 points. Pt is from [place]. No family present at time of visit. No temporal or orbital wasting. Burn Absent Trauma Absent #1 Nutrition Diagnosis Inadequate oral intake Etiology dysphagia, Hx CVA As Evidenced by Signs and Symptoms pt requiring enteral nutrition to meet nutritional needs Is patient on ventilator? No Is Patient Ambulatory and/or Out of Bed No REE-([facility]-confined to bed) 1507.704 Calculation Used for Recommendations [facility] Additional Notes Protein Needs: 87-109g (1.2-1. 5g/kg) Fluid Needs: 1 ml/kcal Nutrition Intervention Nutrition Support: Jevity 1.2 at 50 ml/hr. Water flush of 100 mls q 4 hrs . Kcal 1,440 Protein (gm) 67 Fluid (mL) 968 Goal #1 TF tolerance Goal #2 Meet at least 75% of calorie and protein needs via TF Anticipated Discharge Needs: TF Follow-Up By: 06/11/18 Additional Comments Follow for new TF
[2018-06-09] MEDS: HumaLOG SUB-Q SCH (17:51)
[2018-06-10] MEDS: HumaLOG SUB-Q SCH ×2 (00:42→05:50)
[2018-06-10 05:45] LABS: Basophils % (Auto) 0.2 % (0.0-1.8); Eosinophils # (Auto) 0.1 K/mm3 (0.0-0.4); Eosinophils % (Auto) 0.7 % (0.0-4.3); Hemoglobin 11.3 gm/dl (10.1-14.3); Lymphocytes # (Auto) 1.8 K/mm3 (1.2-5.4); Lymphocytes % (Auto) 16.4 % (13.4-35.0); Mean Corpuscular HGB Conc 32 % (30-34); Mean Corpuscular Volume 72 fl (79-97); Monocytes # (Auto) 0.9 K/mm3 (0.0-0.8); Platelet Count 401 K/mm3 (140-440); Red Blood Count 4.98 M/mm3 (3.65-5.03)
[2018-06-10] MEDS: ZOSYN/NS 4.5GM/100ML 4.5 GM/100 ML VIAL IV SCH (05:58)
[2018-06-10 05:59] LABS: Red Cell Distribution Width 20.2 % (13.2-15.2)
[2018-06-10 06:11] LABS: BUN/Creatinine Ratio 18; Blood Urea Nitrogen 9 mg/dL (7-17); Calcium 8.8 mg/dL (8.4-10.2); Hemolysis Index 2
--- NOTE | 2018-06-10 10:32 | Discharge Summary ---
Providers - Providers Date of Admission: 06/06/18 20:05 Attending physician: ARIS PAULINO MD 06/07/18 02:37 Consult to Physician [CONS] Routine Comment: Consulting Provider: GISSELLE GLASGOW Physician Instructions: Reason For Exam: rectal bleed 06/07/18 04:08 Consult to Wound/ET Nurse [CONS] Routine Reason For Exam: wound eval 06/07/18 10:54 Consult to Dietitian/Nutrition [CONS] Routine Physician Instructions: Reason For Exam: Reason for Consult: Write/Manage Tube Feeding 06/07/18 13:02 Consult to Dietitian/Nutrition [CONS] Routine Physician Instructions: Reason For Exam: Reason for Consult: Write/Manage Tube Feeding 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 In the emergency room the blood was noted to be in her stool. She did evaluate the patient's hemoglobin remained stable there was no indication of GI bleed felt that this could be vaginal bleed there was no recurrent pelvic ultrasound was negative. Recommendation will be followed patient for long with [facility] outpatient. Treated with Severe sepsis secondary to HCAP -Continue IV Vanc and ZosynAugmentin on discharge -Blood cultures negative so far Chronic respiratory failure with hypoxia -Status post tracheostomy -Continue trach care SVT on admission -Stable, continue telemetry monitoring Vaginal bleed -No current bleeding -H/H stable -Pelvic ultrasound negative for acute findings Oral candidiasis -Continue oral Diflucan Hypertension -Controlled on current antihypertensives DM2 -Stable History of CVA with chronic debility and non-verbal -Continue supportive care Chronic metabolic encephalopathy -at baseline Seizure disorder -Stable on Keppra Chronic sacral decubitus ulcers stage IV -Wound care nurse consulted- Initial wound consult for the sacral wound. Wound measurement is as follows; 5.0x5.0x3.0 undermining noticed from 11-4 5.0 in measurement. A small amount of serous sanguineous drainage noticed from the wound. No odor noticed from the wound. Wound cleansed with wound cleanser, alginate packed to the wound, wound c overed with 4x4 gauze, abd pads, and adhesive foam dressing applied to the wound. The clinician made the staff aware of the importance of off loading off of the affected area and the importance of not utilizing under pads while the patient has on a diaper Chronic dysphagia status post PEG tube placement -Continue tube feeding -Dietitian following Disposition: [id number] Time spent for discharge: 35 mins Core Measure Documentation - Palliative Care Palliative Care/ Comfort Measures: Not Applicable - Core Measures Any of the following diagnoses?: none Exam - Physical Exam Narrative exam: General appearance: Present: chronic mild respiratory distress - EENT Eyes: Present: PERRL ENT: thrush - Neck Neck: Present: supple, other (status post tracheostomy) - Respiratory Respiratory effort: normal Respiratory: bilateral: rales - Cardiovascular Rhythm: regular Heart Sounds: Present: S1 & S2 - Extremities Extremities: No edema - Abdominal General gastrointestinal: soft, non-tender, non-distended, normal bowel sounds, other (PEG tube noted) - Integumentary Integumentary: Present: erythema (decubitus ulcers) see woundcare notes - Neurologic Neurologic: other (patient is nonverbal) - Constitutional Vitals: Temp Pulse Resp BP Pulse Ox 97.5 F L 87 28 H 141/62 99 06/10/18 07:27 06/10/18 07:27 06/10/18 07:27 06/10/18 07:27 06/10/18 09:53 Plan Activity: advance as tolerated, fall precautions Diet: per dietitian instruction Wound: per wound nurse instructions Special Instructions: record daily BP diary Follow up with: [facility] [Outside] PRIMARY CAREMD [Primary Care Provider] - 3-5 Days PAT SANTOS MD [Staff Physician] - 7 Days Prescriptions: Amoxicillin/Potassium Clav [Augmentin 875-125 Tablet] 1 each PO BID 3 Days tablet Fluconazole [Diflucan ORAL SOLN] 100 mg FEEDTUBE QDAY #7 oral.liqd Metoprolol 50 mg NGTUBE BID #30 Lansoprazole Solutab [Prevacid Solutab] 30 mg FEEDTUBE QDAY #30 tab.rapdis
[2018-06-10] MEDS: KEPPRA FEEDTUBE SCH (11:21)
[2018-06-10] MEDS: PEPCID FEEDTUBE SCH (11:22)
[2018-06-10] MEDS: LOPRESSOR PO SCH (11:22)
[2018-06-10] MEDS: NORVASC FEEDTUBE SCH (11:22)
[2018-06-10] MEDS: PREVACID SOLUTAB FEEDTUBE SCH (11:23)
[2018-06-10] MEDS: SODIUM CHLORIDE FLUSH SYRINGE 10 ML IV SCH (11:23)
[2018-06-10] MEDS: MIRALAX 3350 FEEDTUBE SCH (11:29)
[2018-06-10] MEDS: VANCOMYCIN 1,500 MG in NACL 0.9% 500 ML 500 ML IV SCH (11:35)
[2018-06-10 12:23] VITALS: BP 126/59
== END 2018-06-10 15:18 | DRG 871 ==
LOC: ED 16:58 → 4A 20:05
PROVIDERS: ADMIT Internal Medicine; ATTEND Internal Medicine
DX: A41.9 Sepsis, unspecified organism (principal); L89.154 Pressure ulcer of sacral region, stage 4; J18.9 Pneumonia, unspecified organism; I47.1 Supraventricular tachycardia; K62.5 Hemorrhage of anus and rectum; J96.11 Chronic respiratory failure with hypoxia; B37.0 Candidal stomatitis; R65.20 Severe sepsis without septic shock; E11.9 Type 2 diabetes mellitus without complications; N93.9 Abnormal uterine and vaginal bleeding, unspecified; I10 Essential (primary) hypertension; I69.920 Aphasia following unspecified cerebrovascular disease; G40.909 Epilepsy, unspecified, not intractable, without status epilepticus; K21.9 Gastro-esophageal reflux disease without esophagitis; Z93.0 Tracheostomy status; Z93.1 Gastrostomy status
CPT/HCPCS: 36415; 71045; 76856; 80048; 80053; 80202; 81001; 82140; 82962; 83735; 84439; 84443; 84484; 85007; 85014; 85018; 85025; 86850; 86900; 86901; 87040; 93005; 93010; 94760; 96374; G0378; J0153; J1450; J1815; J1956; J2543; J3370; J7030; J7040